=== PATIENT | female | born 1990 | race Caucasian/White ===

== ENCOUNTER 2023-10-08 16:57 | Emergency (ER) | payer OTHER, BC, SELFPAY ==
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
[2023-10-08 17:05] VITALS: BMI 24.1
[2023-10-08 17:15] VITALS: BP 132/63; PULSE 114; RESP 18; TEMP 36.4; O2SAT 100
[2023-10-08 17:18] LABS: MANUAL DIFF FLAG NO
[2023-10-08 17:20] LABS: Basophils Percent Auto 0.4 % (0-2); Eosinophils Absolute Auto 0.2 X10*3/uL (0.0-0.4); Eosinophils Percent Auto 1.6 % (0-4); Hematocrit 37.2 % (37.0-47.0); Hemoglobin 12.9 g/dl (12.0-16.0); Imm Gran Abs Auto 0.09 X10*3/uL (0.00-0.03); Imm Gran Pct Auto 0.9 % (0.0-0.4); Lymphocytes Absolute Auto 3.2 X10*3/uL (1.2-4.9); Lymphocytes Percent Auto 30.5 % (20-40); Mean Corpuscular HGB Conc 34.7 g/dl (31.0-35.0); Mean Corpuscular Volume 83.6 fL (80.0-98.0); Mean Platelet Volume 9.3 fL (9.4-12.3); Monocytes Absolute Auto 0.6 X10*3/uL (0.1-1.2); Monocytes Percent Auto 6.1 % (2-11); Neutrophils Absolute Auto 6.3 x10*3/uL (2.0-8.3); Neutrophils Percent Auto 60.5 % (45-73); Platelet Count 338 X10*3/uL (160-400); Red Blood Count 4.45 X10*6/uL (4.20-5.50); Red Cell Distribution Width 12.5 % (11.0-16.0); White Blood Count 10.4 X10*3/uL (4.8-10.8)
[2023-10-08 17:25] LABS: INTERNATIONAL NORM RATIO 0.9 (0.9-1.1); Prothrombin Time 11.2 SEC (11.1-13.3)
[2023-10-08 17:27] LABS: Partial Thromboplastin Time 26.9 SEC (26.0-36.8)
[2023-10-08 17:52] LABS: Alanine Aminotransferase 10 U/L (0-31); Albumin Level 4.4 g/dL (3.5-5.0); Alkaline Phosphatase 53 U/L (39-117); Anion Gap 13 (12-20); Aspartate Amino Transferase 19 U/L (5-31); Bilirubin Total 0.4 mg/dL (0.0-1.0); Blood Urea Nitrogen 18 mg/dL (9-16); Calcium 9.1 mg/dL (8.4-10.2); Carbon Dioxide 21 mmol/L (22-29); Chloride 107 mmol/L (96-108); Creatinine Clr Calc Pharmacy 78.1; Estimated Glomerular Filt Rate > 60; Glucose Random 100 mg/dL (60-115); Magnesium 2.1 mg/dL (1.6-2.6); Potassium 3.1 mmol/L (3.3-5.1); Sodium 138 mmol/L (135-145)
[2023-10-08 17:54] LABS: HCG Quantitative < 2 mIU/mL
[2023-10-08 18:12] VITALS: BP 155/60; PULSE 97; O2SAT 99
[2023-10-08] MEDS: iohexoL 350 MG/ML 100 ML INFUS..BTL IV (18:30)
[2023-10-08] MEDS: Acetaminophen 325 MG TABLET 975 MG PO (19:22)
[2023-10-08 19:59] VITALS: BP 111/66; PULSE 105; RESP 17; TEMP 36.7; O2SAT 98
[2023-10-08 20:03] VITALS: BP 132/63; PULSE 114; RESP 18; TEMP 36.4; O2SAT 100
[2023-10-08 22:42] VITALS: BP 112/70; PULSE 97; RESP 19; TEMP 36.9; O2SAT 97
[2023-10-08] MEDS: Ondansetron ODT 4 MG TAB.RAPDIS TRANSLINGU (23:00)
[2023-10-08 23:06] VITALS: BP 112/70; PULSE 97; RESP 19; TEMP 36.9; O2SAT 97
== END 2023-10-08 23:07 | disposition home or self-care (01) ==
PROVIDERS: Physician Assistant Medical; Emergency Provider Emergency Medicine Emergency Medical Services
DX: S16.1XXA Strain of muscle, fascia and tendon at neck level, initial encounter (principal); S93.401A Sprain of unspecified ligament of right ankle, initial encounter; V43.52XA Car driver injured in collision with other type car in traffic accident, initial encounter; R07.9 Chest pain, unspecified; R51.9 Headache, unspecified; M54.2 Cervicalgia; Y93.89 Activity, other specified; Y92.410 Unspecified street and highway as the place of occurrence of the external cause; Y99.9 Unspecified external cause status
CPT/HCPCS: 36415; 70450; 71260; 72125; 73610; 73630; 74177; 80053; 83735; 84702; 85025; 85610; 85730; 99283; 99284; Q9967